=== PATIENT | female | born 1980 | race Two or more races ===

== ENCOUNTER 2017-01-24 09:45 | Emergency (ER) | payer MEDICAID ==
[~2017-01-24] VITALS: Ht 154.9 cm; Wt 62.6 kg
[2017-01-24 10:10] VITALS: BP 150/103
[2017-01-24 11:08] LABS: Urine Bacteria NONE SEEN /hpf (None Seen); Urine Blood Negative /uL (Negative); Urine Mucus FEW (None Seen); Urine Specific Gravity 1.034 (1.001-1.035); Urine WBC 86 /hpf (0 - 5)
== END 2017-01-24 12:37 | disposition home or self-care (01) ==
LOC: ER 09:45
DX: N39.0 Urinary tract infection, site not specified (principal)
CPT/HCPCS: 76856; 81001; 81025

== ENCOUNTER 2017-12-30 15:26 | Emergency (ER) | payer SELFPAY ==
[~2017-12-30] VITALS: Ht 154.9 cm; Wt 58.1 kg
[2017-12-30 17:21] LABS: Eosinophils # (auto) 0.1 uL; Monocytes # (auto) 0.4 uL; Nucleated Red Blood Cells % 0.1 %
[2017-12-30 17:22] LABS: Basophils # (auto) 0.2 uL; Basophils % (auto) 2.3 % (0.0-2.0); Eosinophils % (auto) 0.8 % (0.0-7.0); Hematocrit 39.2 % (36.0-46.0); Hemoglobin 12.8 g/dL (12.2-16.2); Lymphocytes # (auto) 1.3 uL; Lymphocytes % (auto) 17.3 % (10.0-50.0); Mean Corpuscular Hemoglobin 27.2 pg (28.0-32.0); Mean Corpuscular Hgb Conc. 32.8 g/dL (32.0-36.0); Mean Corpuscular Volume 83.2 fL (80.0-100.0); Neutrophils # (auto) 5.4 uL; Neutrophils % (auto) 73.6 % (37.0-80.0); Platelet Count (auto) 472 10^3/uL (140-450); Red Blood Cells 4.72 10^6/uL (4.0-5.20); Red Cell Distribution Width 13.6 % (11.8-14.3); White Blood Cell 7.3 10^3/uL (4.4-10.8)
[2017-12-30 17:36] LABS: Albumin 3.6 g/dL (3.4-5.0); Calcium 8.3 mg/dL (8.5-10.1); Potassium 3.6 mmol/L (3.5-5.1)
[2017-12-30 17:39] LABS: BUN/Creatinine Ratio 9.6
[2017-12-30 17:41] LABS: Bilirubin, Total 0.2 mg/dL (0.2-1.0); Total Protein 9.4 g/dL (6.4-8.2)
[2017-12-30 20:40] VITALS: BP 131/97
[2017-12-30 20:57] LABS: Urine Bacteria MOD /hpf (None Seen); Urine Blood 2+ /uL (Negative); Urine Mucus FEW (None Seen); Urine Specific Gravity 1.028 (1.001-1.035); Urine WBC 36 /hpf (0 - 5)
== END 2017-12-30 20:53 | disposition home or self-care (01) ==
LOC: ER 15:31
DX: N93.9 Abnormal uterine and vaginal bleeding, unspecified (principal); I10 Essential (primary) hypertension; F17.210 Nicotine dependence, cigarettes, uncomplicated; F12.10 Cannabis abuse, uncomplicated; Z90.49 Acquired absence of other specified parts of digestive tract; Z98.51 Tubal ligation status
CPT/HCPCS: 36415; 76856; 80053; 81001; 84702; 85025

== ENCOUNTER 2018-01-02 15:07 | Emergency (ER) | payer SELFPAY ==
[~2018-01-02] VITALS: Ht 154.9 cm; Wt 58.1 kg
[2018-01-02 16:22] LABS: Basophils # (auto) 0.1 uL; Eosinophils # (auto) 0.1 uL; Hematocrit 35.9 % (36.0-46.0); Hemoglobin 12.1 g/dL (12.2-16.2); Mean Corpuscular Volume 82.6 fL (80.0-100.0); Neutrophils # (auto) 4.1 uL; Nucleated Red Blood Cells % 0.1 %
[2018-01-02 16:24] LABS: Basophils % (auto) 1.8 % (0.0-2.0); Lymphocytes # (auto) 1.2 uL; Lymphocytes % (auto) 19.1 % (10.0-50.0); Mean Corpuscular Hemoglobin 27.8 pg (28.0-32.0); Mean Corpuscular Hgb Conc. 33.7 g/dL (32.0-36.0); Monocytes # (auto) 0.6 uL; Monocytes % (auto) 10.4 % (0.0-12.0); Neutrophils % (auto) 67.7 % (37.0-80.0); Platelet Count (auto) 467 10^3/uL (140-450); Red Blood Cells 4.35 10^6/uL (4.0-5.20); Red Cell Distribution Width 13.4 % (11.8-14.3); White Blood Cell 6.1 10^3/uL (4.4-10.8)
[2018-01-02 16:37] LABS: Albumin 3.3 g/dL (3.4-5.0); Calcium 8.7 mg/dL (8.5-10.1); Potassium 3.5 mmol/L (3.5-5.1)
[2018-01-02 16:43] LABS: Bilirubin, Total 0.4 mg/dL (0.2-1.0); Total Protein 8.6 g/dL (6.4-8.2)
[2018-01-02 16:48] LABS: Urine Bacteria FEW /hpf (None Seen); Urine Blood 2+ /uL (Negative); Urine Mucus FEW (None Seen); Urine Specific Gravity 1.018 (1.001-1.035); Urine WBC 11 /hpf (0 - 5)
[2018-01-02 17:17] VITALS: BP 137/86
== END 2018-01-02 17:18 | disposition home or self-care (01) ==
LOC: ER 15:07
DX: N92.0 Excessive and frequent menstruation with regular cycle (principal); F17.210 Nicotine dependence, cigarettes, uncomplicated; I10 Essential (primary) hypertension; Z90.49 Acquired absence of other specified parts of digestive tract; Z98.51 Tubal ligation status
CPT/HCPCS: 36415; 80053; 81001; 85025

== ENCOUNTER 2018-01-06 21:50 | Emergency (ER) | payer SELFPAY ==
[~2018-01-06] VITALS: Ht 154.9 cm; Wt 58.1 kg
[2018-01-06 22:22] VITALS: BP 149/92
== END 2018-01-07 00:03 | disposition left against medical advice (07) ==
LOC: ER 21:50
DX: R21 Rash and other nonspecific skin eruption (principal); R05 Cough; Z53.21 Procedure and treatment not carried out due to patient leaving prior to being seen by health care provider

== ENCOUNTER 2018-03-22 11:27 | Emergency (ER) | payer SELFPAY ==
[~2018-03-22] VITALS: Ht 154.9 cm; Wt 59.0 kg
[2018-03-22] MEDS ORDERED: cloNIDine HCL 0.1 MG TAB PO ONE (12:00)
[2018-03-22 12:03] VITALS: BP 184/122
[2018-03-22 12:28] LABS: Urine Amorphous Crystal MOD /hpf (None Seen); Urine Bacteria MOD /hpf (None Seen); Urine Blood TRACE /uL (Negative); Urine Mucus FEW (None Seen); Urine Specific Gravity 1.015 (1.001-1.035); Urine WBC 61 /hpf (0 - 5)
[2018-03-22] MEDS ORDERED: cefTRIAXone SOD 1,000 MG VL IM ONE (12:45)
== END 2018-03-22 13:03 | disposition home or self-care (01) ==
LOC: ER 11:28
DX: N39.0 Urinary tract infection, site not specified (principal); I10 Essential (primary) hypertension; F17.210 Nicotine dependence, cigarettes, uncomplicated; F12.10 Cannabis abuse, uncomplicated; Z90.49 Acquired absence of other specified parts of digestive tract; Z98.51 Tubal ligation status
CPT/HCPCS: 81001; 81025; 96372; 99283; J0696

== ENCOUNTER 2018-04-26 08:10 | Emergency (ER) | payer SELFPAY ==
[~2018-04-26] VITALS: Ht 154.9 cm; Wt 59.0 kg
[2018-04-26] MEDS ORDERED: cloNIDine HCL 0.1 MG TAB PO ONE ×2 (08:30→09:00)
[2018-04-26] MEDS ORDERED: PHENAZOPYRIDINE HCL 100 MG TAB PO ONE (09:00)
[2018-04-26 09:39] VITALS: BP 160/97
== END 2018-04-26 09:44 | disposition home or self-care (01) ==
LOC: ER 08:15
DX: N39.0 Urinary tract infection, site not specified (principal); I10 Essential (primary) hypertension; F17.210 Nicotine dependence, cigarettes, uncomplicated; F12.10 Cannabis abuse, uncomplicated; Z98.51 Tubal ligation status; Z90.710 Acquired absence of both cervix and uterus

== ENCOUNTER 2020-12-27 09:43 | Emergency (ER) | payer MEDICAID ==
[~2020-12-27] VITALS: Ht 154.9 cm; Wt 67.1 kg
[2020-12-27] MEDS ORDERED: LISINOPRIL 20 MG TAB PO ONE (10:30)
[2020-12-27] MEDS ORDERED: cefTRIAXone SOD 1,000 MG VL IM ONE (10:30)
[2020-12-27 10:53] LABS: Basophils # (auto) 0 10 ^3/uL (0-0.2); Basophils % (auto) 0.5 % (0.0-2.0); Eosinophils # (auto) 0.1 10 ^3/uL (0-0.8); Eosinophils % (auto) 1.3 % (0.0-7.0); Hematocrit 35.2 % (36.0-46.0); Hemoglobin 10.9 g/dL (12.2-16.2); Lymphocytes # (auto) 1.4 10 ^3/uL (0.4-5.4); Lymphocytes % (auto) 15.4 % (10.0-50.0); Mean Corpuscular Hemoglobin 22.9 pg (28.0-32.0); Mean Corpuscular Volume 73.9 fL (80.0-100.0); Monocytes # (auto) 0.7 10 ^3/uL (0-1.3); Monocytes % (auto) 7.4 % (0.0-12.0); Neutrophils # (auto) 6.8 10 ^3/uL (1.6-8.6); Neutrophils % (auto) 75.4 % (37.0-80.0); Red Blood Cells 4.77 10^6/uL (4.0-5.20); Red Cell Distribution Width 16.8 % (11.8-14.3)
[2020-12-27 11:14] LABS: BUN/Creatinine Ratio 12.9; Calcium 8.9 mg/dL (8.5-10.1); Potassium 3.7 mmol/L (3.5-5.1)
[2020-12-27 13:12] LABS: Urine Bacteria NONE SEEN /hpf (None Seen); Urine Blood 1+ /uL (Negative); Urine Mucus FEW (None Seen); Urine Specific Gravity 1.017 (1.001-1.035); Urine WBC 32 /hpf (0 - 5)
[2020-12-27 13:30] VITALS: BP 141/87
== END 2020-12-27 13:36 | disposition home or self-care (01) ==
LOC: ER 09:43
DX: S91.331A Puncture wound without foreign body, right foot, initial encounter (principal); L08.9 Local infection of the skin and subcutaneous tissue, unspecified; I10 Essential (primary) hypertension; N39.0 Urinary tract infection, site not specified; N93.9 Abnormal uterine and vaginal bleeding, unspecified; F17.210 Nicotine dependence, cigarettes, uncomplicated; Z90.49 Acquired absence of other specified parts of digestive tract; X58.XXXA Exposure to other specified factors, initial encounter; Y93.89 Activity, other specified; Y92.89 Other specified places as the place of occurrence of the external cause; Y99.8 Other external cause status
CPT/HCPCS: 36415; 80048; 81001; 81025; 85025; 96372; 99283; J0696

== ENCOUNTER 2023-10-19 01:16 | Emergency (ER) | payer MEDICAID ==
[~2023-10-19] VITALS: Ht 154.9 cm; Wt 65.2 kg
[2023-10-19 01:31] VITALS: BP 179/110; PULSE 100; RESP 17; TEMP 98.1; O2SAT 100
[2023-10-19] MEDS ORDERED: IBUP-1455 PO (01:36)
[2023-10-19] MEDS ORDERED: AMOX875T4 PO (01:36)
[2023-10-19] MEDS ORDERED: LISI20TA56 PO (01:36)
== END 2023-10-19 01:44 | disposition home or self-care (01) ==
LOC: ER 01:16
DX: K03.81 Cracked tooth (principal); I10 Essential (primary) hypertension; F17.210 Nicotine dependence, cigarettes, uncomplicated; F12.10 Cannabis abuse, uncomplicated; Z90.49 Acquired absence of other specified parts of digestive tract; Z98.51 Tubal ligation status; Z76.0 Encounter for issue of repeat prescription